=== PATIENT | female | born 1995 | race Caucasian/White ===

== ENCOUNTER 2024-07-19 12:33 | Emergency (ER) | payer SELFPAY ==
--- NOTE | 2024-07-19 14:21 | RAD REPORT ---
Exam:Hand Right 3 View HISTORY: Right hand pain FINDINGS: No fracture or dislocation seen
--- NOTE | 2024-07-19 14:32 | EDPHYS ---
Physician Documentation [facility] Name: Kelvin Calix Age: 29 yrs Sex: Female : 1995 Arrival Date: 07/19/2024 Time: 12:33 Bed IW1 Private MD: ED Physician Aston Dorsey HPI: 07/19 14:25 This 29 yrs old Female presents to ER via Ambulatory with complaints of Hand Injury. ms3 14:25 29-year-old female with no past medical history presents to the emergency department ms3 for right hand pain status post punching a wall 3 x 1 week ago. Patient states movement makes the pain worse. Patient rates her pain a 1/10 without movement and a 5/10 with movement.. Historical: - Allergies: 13:21 No Known Allergies; iw - Home Meds: 13:21 None [Active]; iw - PMHx: 13:21 None; iw ROS: 14:25 Constitutional: Negative for fever, and chills. Cardiovascular: Negative for chest ms3 pain, and palpitations. Respiratory: Negative for shortness of breath, cough, wheezing, and pleuritic chest pain, Abdomen/GI: Negative for abdominal pain, nausea, vomiting, diarrhea, and constipation, 14:25 MS/extremity: Positive for Right hand pain, Exam: 14:25 Constitutional: This is a well developed, well nourished patient who is awake, alert, ms3 and in no acute distress. Head/Face: Normocephalic, atraumatic. Chest/axilla: Normal chest wall appearance and motion. Nontender with no deformity. Cardiovascular: Regular rate and rhythm with a normal S1 and S2. No gallops, murmurs, or rubs. Normal PMI, no JVD. No pulse deficits. Respiratory: Lungs have equal breath sounds bilaterally, clear to auscultation and percussion. No rales, rhonchi or wheezes noted. No increased work of breathing, no retractions or nasal flaring. Abdomen/GI: Soft, non-tender, with normal bowel sounds. No distension or tympany. No guarding or rebound. No evidence of tenderness throughout. 14:25 Musculoskeletal/extremity: Extremities: noted in the Right hand painfourth metacarpal: ecchymosis, pain, swelling, tenderness, Vital Signs: 13:19 BP 145 / 93; Pulse 79; Resp 16; Temp 98.2; Pulse Ox 100% on R/A; Weight 74.84 kg; iw Height 5 ft. 5 in. ; Pain 5/10; 13:19 Body Mass Index 27.46 (74.84 kg, 165.1 cm) iw 13:19 Pain Scale: Adult iw MDM: 13:02 Patient medically screened. ms3 14:25 Differential diagnosis: closed fracture, contusion. ms3 14:31 Data reviewed: vital signs, nurses notes, radiologic studies, plain films, and as a ms3 result, I will discharge patient. Independent interpretation of the following test(s) in the Emergency Department X-Ray: My interpretation is Right hand x-ray images reviewed by me do not reveal fracture. Counseling: I had a detailed discussion with the patient and/or guardian regarding the historical points, exam findings, and any diagnostic results supporting the discharge/admit diagnosis, radiology results, the need for outpatient follow up, to return to the emergency department if symptoms worsen or persist or if there are any questions or concerns that arise at home. Special discussion: I discussed with the patient/guardian in detail that at this point there is no indication for admission to the hospital. It is understood, however, that if the symptoms persist or worsen the patient needs to return immediately for re-evaluation. ED course: Discussed x-ray results with patient. Patient to follow-up with primary care physician 2 to 3 days. Patient understands and agrees with plan. All questions were answered. Return precautions discussed include worsening symptoms, or any other concerns. 07/19 13:02 Order name: Hand Right 3 View XRAY; Complete Time: 14:28 ms3 Administered Medications: No medications were administered Disposition Summary: 07/19/24 14:31 Discharge Ordered Notes: Location: Home ms3 Condition: Stable ms3 Diagnosis - Pain in right hand ms3 Followup: ms3 - With: Balwinder Langley DO - When: 2 - 3 days - Reason: Recheck today's complaints Discharge Instructions: - Discharge Summary Sheet ms3 - Musculoskeletal Pain ms3 Forms: - Medication Reconciliation Form ms3 - Antibiotic Education ms3 - Prescription Opioid Use ms3 - Patient Portal Instructions ms3 - Leadership Thank You Letter ms3 Signatures: Dispatcher [employer] Nciole Orlando RN Aston Rosas, DO ms3 Corrections: (The following items were deleted from the chart) 13:02 13:02 Hand Right 3 View+RAD.RAD.BRZ ordered. EDMS EDMS
--- NOTE | 2024-07-19 14:32 | ER ---
Nurse's Notes [facility] Name: Kelvin Calix Age: 29 yrs Sex: Female : 1995 Arrival Date: 07/19/2024 Time: 12:33 Bed IW1 Private MD: Diagnosis: Pain in right hand Presentation: 07/19 13:19 Chief complaint: Patient states: punched a wall about a week ago , right hand swelling iw and pain. Coronavirus screen: At this time, the client does not indicate any symptoms associated with coronavirus-19. Ebola Screen: No symptoms or risks identified at this time. Initial Sepsis Screen: Does the patient meet any 2 criteria? No. Patient's initial sepsis screen is negative. Does the patient have a suspected source of infection? No. Patient's initial sepsis screen is negative. Risk Assessment: Do you want to hurt yourself or someone else? Patient reports no desire to harm self or others. 13:19 Method Of Arrival: Ambulatory iw 13:19 Acuity: CHUY 4 iw Triage Assessment: 13:20 General: Appears in no apparent distress. Behavior is calm, cooperative. Pain: iw Complains of pain in right hand. Musculoskeletal: Range of motion: Swelling present in right hand. Injury Description: Bruise sustained to right hand. Historical: - Allergies: 13:21 No Known Allergies; iw - Home Meds: 13:21 None [Active]; iw - PMHx: 13:21 None; iw Screenin:00 [facility] ED Fall Risk Assessment (Adult) History of falling in the last 3 months, iw including since admission No falls in past 3 months (0 pts) Confusion or Disorientation No (0 pts) Intoxicated or Sedated No (0 pts) Impaired Gait No (0 pts) Mobility Assist Device Used No (0 pt) Altered Elimination No (0 pt) Score/Fall Risk Level 0 - 2 = Low Risk Oriented to surroundings. Abuse screen: Denies threats or abuse. Denies injuries from another. Nutritional screening: No deficits noted. Tuberculosis screening: No symptoms or risk factors identified. Assessment: 13:21 General: Appears in no apparent distress. comfortable, Behavior is calm, cooperative. iw Pain: Complains of pain in right hand. Neuro: Level of Consciousness is awake, alert, obeys commands, Oriented to person, place, time, situation, Moves all extremities. Full function. Cardiovascular: Patient's skin is warm and dry. Respiratory: Airway is patent Respiratory effort is even, unlabored, Respiratory pattern is regular. Derm: Skin is intact, is healthy with good turgor. Musculoskeletal: Range of motion: limited in MCP of right ring finger and MCP of right little finger. Vital Signs: 13:19 BP 145 / 93; Pulse 79; Resp 16; Temp 98.2; Pulse Ox 100% on R/A; Weight 74.84 kg; iw Height 5 ft. 5 in. ; Pain 5/10; 13:19 Body Mass Index 27.46 (74.84 kg, 165.1 cm) iw 13:19 Pain Scale: Adult iw ED Course: 12:50 Patient arrived in ED. iw 12:57 Aston Dorsey DO is Attending Physician. ms3 13:21 Triage completed. iw 13:52 Hand Right 3 View XRAY In Process Unspecified. EDMS 14:31 Balwinder Langley DO is Referral Physician. ms3 15:09 Nicole Mcwilliams RN is Primary Nurse. iw Administered Medications: No medications were administered Outcome: 14:31 Discharge ordered by . ms3 15:10 Patient left the ED. iw Signatures: Dispatcher [employer] EDMS Nicole Mcwilliams RN RN iw Aston Dorsey DO DO ms3
[2024-07-19 15:20] VITALS: BP 145/93; TEMP 98.2; O2SAT 100
== END 2024-07-19 15:10 | disposition home or self-care (01) ==
LOC: ER 12:33
DX: M79.641 Pain in right hand (principal)
CPT/HCPCS: 99281

== ENCOUNTER 2025-01-05 13:30 | Emergency (ER) | payer SELFPAY ==
--- OUTSIDE RECORDS SUMMARY | 2025-01-05 13:33 | XMS REPORT | Continuity of Care Document ---
Author Name Unknown Address [address] [place] [address] [facility] [place] Address [address] [place] [address] Care Team Providers Care Linen Room Custodian Name Role Phone PCP, PATIENT DOES NOT HAVE A Primary Care Physic tristan Unavailable LINNETTE BYRNE Attending Clinician Unavailable Linnette Byrne DNP Attending Clinician [phone] LINNETTE BYRNE Admitting Clinician Unavailable Allergies, Adverse Reactions, Alerts Allergy Name Allergy Type Status Severity Reaction(s) Onset Date Inactive Date Treating Clinician Comments Source NO KNOWN ALLERGIE S Drug Class Active [facility] Social History Social Habit Start Date Stop Date Quantity Comments [facility] intake 2024-12-17 00:00:00 2024-12-17 00:00:00 Current drinker of alcohol (finding) [facility] History of Social function 2024-12-17 00:00:00 2024-12-17 00:00:00 [facility] Tobacco use and exposure 2024-12-17 00:00:00 2024-12-17 00:00:00 Smokeless tobacco non-user [facility] Sex assigned at 1995 00:00:00 1995 00:00:00 [facility] Smoking Status Start Date Stop Date Source Never smoked tobacco [facility] Vital Signs Vital Name Observation Time Observation Value Comments S ource Systolic blood pressure 2024-12-17 19:00:00 132 mm[Hg] Ackerman o [facility] Diastolic blood pressure 2024-12-17 19:00:00 83 mm[Hg] Ackerman o f [facility] Heart rate 2024-12-17 19:00:00 74 /min [facility] Body temperature 2024-12-17 19:00:00 36.39 Wandy [facility] Respiratory rate 2024-12-17 19:00:00 18 /min [facility] Body height 2024-12-17 19:00:00 165.1 cm [facility] Body weight 2024-12-17 19:00:00 97.977 kg [facility] BMI 2024-12-17 19:00:00 35.94 kg/m2 [facility] Encounters Start Date/Time End Date/Time Encounter Type Admission Type Attending Clinicians Care Facility Care Department Encounter ID Source 2025-01-14 15:15:00 2025-01-14 15:15:00 Outpatient LINNETTE DENT [facility] [id number] [facility] 2024-12-27 09:41:29 2024-12-27 23:59:00 Outpatient R LINNETTE BYRNE [facility] [id number] [facility] 2024-12-17 13:00:00 2024-12-17 13:34:29 Outpatient R LINNETTE BYRNE [facility] [id number] [facility] 2024-12-17 13:00:00 2024-12-17 13:34:29 Office Visit [facility]inn[facility] Byr[facility] [id number] [facility]
[2025-01-05 14:21] LABS: Influenza A Ag Negative; Influenza B Ag Negative; SARS-CoV-2 Antigen Rapid Res Negative (Negative)
--- NOTE | 2025-01-05 14:24 | EDPHYS ---
Physician Documentation [facility] Name: Kelvin Calix Age: 29 yrs Sex: Female : 1995 Arrival Date: 01/05/2025 Time: 13:30 Bed IW2 Private MD: ED Physician Christophe Langley HPI: 01/05 13:55 This 29 yrs old Female presents to ER via Ambulatory with complaints of Sore Throat, sb4 Flu Symptoms. 13:55 sore throat, congestion, mild cough x 3 days. no chest pain, sob, nausea, vomiting, sb4 diarrhea. unsure if fever or not. taking dayquil and nyquil without significant improvement in symptoms. denies any medical history. no trismus. Historical: - Allergies: 13:49 No Known Allergies; cm10 - Home Meds: 13:49 None [Active]; cm10 - PMHx: 13:49 None; cm10 - PSHx: 13:49 None; cm10 - Immunization history:: Adult Immunizations unknown. - Infectious Disease History:: Denies. - Social history:: Smoking status: Patient denies any tobacco usage or history of. ROS: 13:55 Constitutional: Negative for fever, chills, and weight loss, sb4 13:55 ENT: Positive for sinus congestion, sore throat, 13:55 Respiratory: Positive for cough, 13:55 All other systems are negative, Exam: 13:55 Constitutional: This is a well developed, well nourished patient who is awake, alert, sb4 and in no acute distress. Head/Face: Normocephalic, atraumatic. Eyes: Extra-ocular motions intact. Periorbital areas with no swelling, redness, or edema. Cardiovascular: Regular rate and rhythm with a normal S1 and S2. Respiratory: No increased work of breathing, no retractions or nasal flaring. Abdomen/GI: Soft, non-tender, no distension. Skin: Warm, dry with normal turgor. Normal color with no rashes, no lesions, and no evidence of cellulitis. 13:55 ENT: Posterior pharynx: Tonsils: bilaterally enlarged, with erythema, no exudate, no ulcerations, 13:55 Respiratory: Breath sounds: are clear throughout, Vital Signs: 13:48 BP 141 / 94; Pulse 74; Resp 15; Temp 98.7(O); Pulse Ox 99% on R/A; Weight 90.72 kg; cm10 Height 5 ft. 5 in. ; Pain 12/27; 13:48 Body Mass Index 33.28 (90.72 kg, 165.1 cm) cm10 13:48 Pain Scale: Adult cm10 MDM: 13:48 Medical Screening Exam initiated sb4 14:22 Data reviewed: vital signs, nurses notes, lab test result(s), and as a result, I will sb4 discharge patient. Counseling: I had a detailed discussion with the patient and/or guardian regarding the historical points, exam findings, and any diagnostic results supporting the discharge/admit diagnosis, lab results, the need for outpatient follow up, for definitive care, to return to the emergency department if symptoms worsen or persist or if there are any questions or concerns that arise at home. 01/05 13:48 Order name: Group A Streptococcus Rapid; Complete Time: 14:15 sb4 01/05 13:48 Order name: COVID-19 Ag + Flu A+B Ag; Complete Time: 14:22 sb4 01/05 14:17 Order name: Throat Culture EDMS Administered Medications: No medications were administered Disposition Summary: 01/05/25 14:23 Discharge Ordered Notes: Location: Home sb4 Problem: new sb4 Symptoms: have improved sb4 Condition: Stable sb4 Diagnosis - Acute tonsillitis, unspecified sb4 Followup: sb4 - With: Emergency Department - When: As needed - Reason: Fever > 102 F, Worsening of condition Discharge Instructions: - Discharge Summary Sheet sb4 - Tonsillitis, [id number] sb4 Forms: - Antibiotic Education sb4 - Patient Portal Instructions sb4 - Leadership Thank You Letter sb4 - Work release form ty Prescriptions: - Amoxicillin 875 mg Oral Tablet - take 1 tablet ORAL route every 12 hours for 10 days; 20 tablet; Refills: 0, sb4 Product Selection Permitted Signatures: Dispatcher [employer] Myranda Em PA-C PA-C sb4 Adrianne Felix, RN RN cm10
--- NOTE | 2025-01-05 14:24 | ER ---
Nurse's Notes [facility] Name: Kelvin Calix Age: 29 yrs Sex: Female : 1995 Arrival Date: 01/05/2025 Time: 13:30 Bed IW2 Private MD: Diagnosis: Acute tonsillitis, unspecified Presentation: 01/05 13:48 Chief complaint: Patient states: Cough, sore throat, subjective fever onset friday. cm10 Coronavirus screen: Client denies travel out of the [place] in the last 14 days. Ebola Screen: Patient denies travel to an Ebola-affected area in the 21 days before illness onset. Initial Sepsis Screen: Does the patient meet any 2 criteria? No. Patient's initial sepsis screen is negative. Does the patient have a suspected source of infection? No. Patient's initial sepsis screen is negative. Risk Assessment: Do you want to hurt yourself or someone else? Patient reports no desire to harm self or others. Onset of symptoms was January 02, 2025. 13:48 Method Of Arrival: Ambulatory 10 13:48 Acuity: CHUY 4 cm10 Triage Assessment: 13:50 General: Appears in no apparent distress. uncomfortable, Behavior is calm, cooperative. cm10 EENT: No deficits noted. Throat is reddened has enlarged tonsils Reports pain when swallowing. Neuro: No deficits noted. Level of Consciousness is awake, alert, obeys commands, Oriented to person, place, time, situation, Appropriate for age. Respiratory: No deficits noted. Airway is patent Respiratory effort is even, unlabored, Respiratory pattern is regular, symmetrical. Historical: - Allergies: 13:49 No Known Allergies; cm10 - Home Meds: 13:49 None [Active]; cm10 - PMHx: 13:49 None; cm10 - PSHx: 13:49 None; cm10 - Immunization history:: Adult Immunizations unknown. - Infectious Disease History:: Denies. - Social history:: Smoking status: Patient denies any tobacco usage or history of. Vital Signs: 13:48 BP 141 / 94; Pulse 74; Resp 15; Temp 98.7(O); Pulse Ox 99% on R/A; Weight 90.72 kg; cm10 Height 5 ft. 5 in. ; Pain 3/10; 13:48 Body Mass Index 33.28 (90.72 kg, 165.1 cm) cm10 13:48 Pain Scale: Adult cm10 ED Course: 13:34 Patient arrived in ED. cj3 13:40 [facility] Dubois [facility] sb4 13:40 Christophe Langley MD is Attending Physician. sb4 13:49 Triage completed. cm10 13:50 Arm band placed on right wrist. Patient placed in an exam room, on a stretcher. cm10 13:53 COVID-19 Ag + Flu A+B Ag Sent. cm10 13:53 Group A Streptococcus Rapid Sent. cm10 13:53 COVID swab sent to lab. Strep swab sent to lab. cm10 14:47 Nicole Mcwilliams, RN is Primary Nurse. iw Administered Medications: No medications were administered Outcome: 14:23 Discharge ordered by . sb4 14:47 Patient left the ED. iw Signatures: Nicole Mcwilliams, RN RN iw Myranda Dubois PA-C PA-C sb4 Adrianne Felix RN RN cm10 Madai Sheppard cj3
[2025-01-05 21:29] VITALS: BP 141/94; TEMP 98.7; O2SAT 99
== END 2025-01-05 14:47 | disposition home or self-care (01) ==
LOC: ER 13:30
DX: J03.90 Acute tonsillitis, unspecified (principal); Z11.52 Encounter for screening for COVID-19
CPT/HCPCS: 36415; 87070; 87428

== ENCOUNTER 2025-07-22 21:02 | Emergency (ER) | payer OTHER, SELFPAY ==
[2025-07-22] MEDS ORDERED: IBUPROFEN 400 MG TAB ONE (21:16)
--- NOTE | 2025-07-22 22:12 | RAD REPORT ---
EXAMINATION: Wrist Right 3 View VIEWS: Three views CLINICAL INDICATION: Female, 30 years old. PAIN RIGHT COMPARISON: No prior exams IMPRESSION: No acute fracture. No malalignment. No significant focal degenerative changes.
--- NOTE | 2025-07-22 22:38 | ER ---
Nurse's Notes [facility] Name: Kelvin Calix Age: 30 yrs Sex: Female : 1995 Arrival Date: 07/22/2025 Time: 21:02 Bed 10 Private MD: Diagnosis: Pain in right wrist Presentation: 07/22 21:17 Chief complaint: Patient states: Right thumb pain that radiates to her right wrist and tb4 sometimes right elbow for two weeks. Coronavirus screen: At this time, the client does not indicate any symptoms associated with coronavirus-19. Ebola Screen: No symptoms or risks identified at this time. Initial Sepsis Screen: Does the patient meet any 2 criteria? No. Patient's initial sepsis screen is negative. Does the patient have a suspected source of infection? No. Patient's initial sepsis screen is negative. Risk Assessment: Do you want to hurt yourself or someone else? Patient reports no desire to harm self or others. Onset of symptoms was June 2025. 21:17 Method Of Arrival: Ambulatory tb4 21:17 Acuity: CHUY 3 tb4 Triage Assessment: 21:34 General: Appears uncomfortable, when right hand is moved. Behavior is calm, tb4 cooperative. Pain: Complains of pain in dorsal aspect of distal phalanx of right thumb, dorsal aspect of proximal phalanx of right thumb, dorsal aspect of right wrist, palmar aspect of distal phalanx of right thumb, palmar aspect of proximal phalanx of right thumb, heel of right hand, right thumbnail and Right first web space Pain radiates to right elbow Pain currently is 5 out of 10 on a pain scale. Quality of pain is described as radiating, sharp, Pain began gradually, two weeks ago Is continuous. EENT: No deficits noted. No signs and/or symptoms were reported regarding the EENT system. Neuro: Level of Consciousness is awake, alert, obeys commands, Oriented to person, place, time, situation, Systems Applications Programming Lead are weak on right Moves all extremities. Full function Gait is steady, Speech is normal, Facial symmetry appears normal. Cardiovascular: No deficits noted. Respiratory: No deficits noted. Airway is patent Respiratory effort is even, unlabored, Respiratory pattern is regular, symmetrical. GI: No deficits noted. No signs and/or symptoms were reported involving the gastrointestinal system. : No deficits noted. No signs and/or symptoms were reported regarding the genitourinary system. Derm: No deficits noted. No signs and/or symptoms reported regarding the dermatologic system. Skin is intact, is healthy with good turgor, Skin is dry, Skin is normal, Skin temperature is warm. Musculoskeletal: Circulation, motion, and sensation intact. Range of motion: intact in all extremities, Tenderness present in right hand and right arm Reports pain in palmar aspect of distal phalanx of right thumb, palmar aspect of proximal phalanx of right thumb, heel of right hand and Right first web space since pass two weeks. Injury Description: Patient denies injury. 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 - Infectious Disease History:: Denies. - Social history:: Smoking status: Patient denies any tobacco usage or history of. Patient uses alcohol, occasionally. Patient/guardian denies using street drugs, IV drugs, tobacco products. Screenin:41 [facility] ED Fall Risk Assessment (Adult) History of falling in the last 3 months, tb4 including since admission No falls in past 3 months (0 pts) Confusion or Disorientation No (0 pts) Intoxicated or Sedated No (0 pts) Impaired Gait No (0 pts) Mobility Assist Device Used No (0 pt) Altered Elimination No (0 pt) Score/Fall Risk Level 0 - 2 = Low Risk Maintained a safe environment. Abuse screen: Denies threats or abuse. Denies injuries from another. Nutritional screening: No deficits noted. Tuberculosis screening: No symptoms or risk factors identified. Assessment: 23:04 General: Appears in no apparent distress. comfortable, Behavior is calm, cooperative. tb4 Pain: Complains of pain in right hand Pain radiates to right elbow, right wrist and palmar aspect of right forearm Pain currently is 4 out of 10 on a pain scale. Quality of pain is described as pressure, Pain began gradually. Neuro: Level of Consciousness is awake, alert, obeys commands, Oriented to person, place, time, situation, Systems Applications Programming Lead are weak on right Moves all extremities. Full function Weakness in right hand(s) arm(s) Gait is steady, Speech is normal, Facial symmetry appears normal. Respiratory: Airway is patent Respiratory effort is even, unlabored, Respiratory pattern is regular, symmetrical. GI: No deficits noted. No signs and/or symptoms were reported involving the gastrointestinal system. : No deficits noted. No signs and/or symptoms were reported regarding the genitourinary system. EENT: No deficits noted. No signs and/or symptoms were reported regarding the EENT system. Derm: No deficits noted. No signs and/or symptoms reported regarding the dermatologic system. Skin is intact, is healthy with good turgor, Skin is dry, Skin is normal, Skin temperature is warm. Musculoskeletal: Circulation, motion, and sensation intact. Range of motion: limited in all extremities, in the right hand. Vital Signs: 21:17 BP 144 / 97; Pulse 75; Resp 17; Temp 98.1(O); Pulse Ox 99% ; Weight 90.72 kg; Height 5 tb4 ft. 5 in. ; Pain 5/10; 22:23 BP 139 / 69; Pulse 73; Resp 18; Pulse Ox 100% on R/A; tb4 23:04 BP 140 / 79; Pulse 81; Resp 20; Pulse Ox 99% on R/A; tb4 23:46 BP 134 / 81; Pulse 83; Resp 18; Pulse Ox 100% on R/A; Pain 2/10; tb4 21:17 Body Mass Index 33.28 (90.72 kg, 165.1 cm) tb4 21:17 Pain Scale: Adult tb4 23:46 Pain Scale: Adult tb4 ED Course: 21:06 Patient arrived in ED. gm2 21:07 Bulmaro Person PA-C is PHCP. cp 21:07 Ryan Bradshaw DO is Attending Physician. cp 21:34 Triage completed. tb4 21:34 Arm band placed on left wrist. tb4 21:40 No provider procedures requiring assistance completed. X-ray(s) taken. tb4 21:41 Patient has correct armband on for positive identification. Call light in reach. Side tb4 rails up X 1. Client placed on continuous cardiac and pulse oximetry monitoring. NIBP monitoring applied. Door closed. 21:56 XRAY Wrist RIGHT 3 view In Process Unspecified. EDMS 22:37 Matthew Park MD is Referral Physician. cp 23:46 Provided Education on: Take medication as prescribed. tb4 23:49 Patient did not have IV access during this emergency room visit. tb4 Administered Medications: 21:30 Drug: Ibuprofen PO 800 mg PO once Route: PO; tb4 23:11 Follow up: Response: No adverse reaction tb4 Medication: 21:41 VIS not applicable for this client. tb4 Outcome: 22:37 Discharge ordered by . la nena 23:49 Discharged to home ambulatory, tb4 23:49 Condition: stable 23:49 Discharge instructions given to patient, Instructed on discharge instructions, follow up and referral plans. Demonstrated understanding of instructions, follow-up care, medications, Prescriptions given X 1, 23:50 Patient left the ED. tb4 Signatures: Dispatcher [employer] EDMS Bulmaro Person PA-C PA-C cp Mitchell, Ginger gm2 Nancy Dubois, RN RN tb4
--- NOTE | 2025-07-22 22:38 | EDPHYS ---
Physician Documentation [facility] Name: Kelvin Calix Age: 30 yrs Sex: Female : 1995 Arrival Date: 07/22/2025 Time: 21:02 Bed 10 Private MD: ED Physician Ryan Bradshaw HPI: 07/22 21:30 This 30 yrs old Female presents to ER via Ambulatory with complaints of Arm Pain. cp 21:30 The patient or guardian complains of pain, that is acute. The complaints affect the cp right wrist. Context: resulted from unknown cause. Onset: The symptoms/episode began/occurred 2 week(s) ago. 21:30 Treatment prior to arrival includes: no previous treatment. cp 21:30 Associated signs and symptoms: Pertinent positives: shooting pain to right hand and up cp right arm, Pertinent negatives: decreased range of motion, deformity. Severity of symptoms: in the emergency department the symptoms are unchanged, despite home interventions. MANAGER ASSURANCE: 23:49 Not tb4 Historical: - Allergies: 21:34 No Known Allergies; tb4 - Immunization history:: Adult Immunizations up to date. - Infectious Disease History:: Denies. - Social history:: Smoking status: Patient denies any tobacco usage or history of. Patient uses alcohol, occasionally. Patient/guardian denies using street drugs, IV drugs, tobacco products. ROS: 21:35 MS/extremity: Positive for pain, of the right wrist, Negative for injury or acute cp deformity, decreased range of motion, swelling, warmth, 21:35 Eyes: Negative for injury, pain, redness, and discharge, cp 21:35 Constitutional: Negative for body aches, chills, fever, 21:35 Respiratory: Negative for cough, shortness of breath, wheezing, 21:35 Abdomen/GI: Negative for abdominal pain, vomiting, diarrhea, constipation, black/tarry stool, rectal bleeding, 21:35 All other systems are negative, cp Exam: 21:35 Head/Face: Normocephalic, atraumatic. cp 21:35 Constitutional: The patient appears in no acute distress, alert, awake, non-toxic, well developed, well nourished, 21:35 Neck: ROM/movement: is normal, is supple, without pain, no range of motions limitations, 21:35 Chest/axilla: Inspection: normal, 21:35 Cardiovascular: Rate: normal, Rhythm: regular, Pulses: Pulses are 2+ in right radial artery. 21:35 Respiratory: the patient does not display signs of respiratory distress, Respirations: normal, no use of accessory muscles, no retractions, labored breathing, is not present, Breath sounds: are clear throughout, no decreased breath sounds, 21:35 Back: pain, is absent, 21:35 Musculoskeletal/extremity: Extremities: noted in the right wrist: tenderness and pain volar side and ulna side, no ROM restriction, minimal swelling, no erythema noted, the right hand and right arm Sensation intact. Vital Signs: 21:17 BP 144 / 97; Pulse 75; Resp 17; Temp 98.1(O); Pulse Ox 99% ; Weight 90.72 kg; Height 5 tb4 ft. 5 in. ; Pain 5/10; 22:23 BP 139 / 69; Pulse 73; Resp 18; Pulse Ox 100% on R/A; tb4 23:04 BP 140 / 79; Pulse 81; Resp 20; Pulse Ox 99% on R/A; tb4 23:46 BP 134 / 81; Pulse 83; Resp 18; Pulse Ox 100% on R/A; Pain 2/10; tb4 21:17 Body Mass Index 33.28 (90.72 kg, 165.1 cm) tb4 21:17 Pain Scale: Adult tb4 23:46 Pain Scale: Adult tb4 MDM: 21:11 Medical Screening Exam initiated cp 22:37 Data reviewed: vital signs, nurses notes, radiologic studies, plain films, and as a cp result, I will discharge patient. 22:37 Differential diagnosis: dislocation, closed fracture, tendonitis, sprain. I considered cp the following discharge prescriptions or medication management in the emergency department Medications were administered in the Emergency Department. See MAR. Independent interpretation of the following test(s) in the Emergency Department X-Ray: My interpretation is images of right wrist negative for fracture. Counseling: I had a detailed discussion with the patient and/or guardian regarding the historical points, exam findings, and any diagnostic results supporting the discharge/admit diagnosis, radiology results, to return to the emergency department if symptoms worsen or persist or if there are any questions or concerns that arise at home. Response to treatment: the patient's symptoms have mildly improved after treatment, and as a result, I will discharge patient. 07/22 21:21 Order name: XRAY Wrist RIGHT 3 view; Complete Time: 22:44 cp 07/22 22:44 Interpretation: Report reviewed. cp 07/22 22:22 Order name: Wrist Splint; Complete Time: 23:11 cp Administered Medications: 21:30 Drug: Ibuprofen PO 800 mg PO once Route: PO; tb4 23:11 Follow up: Response: No adverse reaction tb4 Disposition Summary: 07/22/25 22:37 Discharge Ordered Notes: Location: Home cp Condition: Stable cp Diagnosis - Pain in right wrist cp Followup: cp - With: Matthew Park MD - When: 1 week - Reason: pain continues Discharge Instructions: - Discharge Summary Sheet cp - Wrist Pain, Adult cp Forms: - Medication Reconciliation Form cp - Antibiotic Education cp - Prescription Opioid Use cp - Patient Portal Instructions cp - Leadership Thank You Letter cp - Work release form ha1 Prescriptions: - Diclofenac Sodium 75 mg Oral Tablet Sustained Release - take 1 tablet ORAL route 2 times per day; 30 tablet; Refills: 0, Product cp Selection Permitted Addendum: 07/26/2025 09:07 Co-signature as Attending Physician, Ryan AGOSTO reviewed the patient's care t t7 provided by the Advanced Practice Provider and agree with the diagnosis and treatment plan. Signatures: Dispatcher [employer] EDVA Bulmaro Person PA-C PA-C cp Brown, Terri, RN RN tb4 Ryan Bradshaw DO DO tt7 Corrections: (The following items were deleted from the chart) 07/23 23:25 07/22 21:30 Onset: The symptoms/episode began/occurred 1 month(s) ago, cp cp
[2025-07-23 00:42] VITALS: TEMP 98.1
[2025-07-23 00:47] VITALS: BP 134/81; O2SAT 100
== END 2025-07-22 23:50 | disposition home or self-care (01) ==
LOC: ER 21:02
DX: M25.531 Pain in right wrist (principal)
CPT/HCPCS: 99284